=== PATIENT | male | born 1980 | race Caucasian/White ===

== ENCOUNTER 2020-03-03 13:22 | Inpatient (IN) | payer OTHER ==
[~2020-03-03] VITALS: Ht 175.3 cm; Wt 122.0 kg
[2020-03-03] MEDS ORDERED: CYCL100C5 PO (13:51)
[2020-03-03] MEDS ORDERED: PRAV20TA2 PO (13:51)
[2020-03-03] MEDS ORDERED: FOLI1TAB11 PO (13:51)
[2020-03-03] MEDS ORDERED: MYCO500T PO (13:51)
[2020-03-03] MEDS ORDERED: DILT180C78 PO (13:51)
[2020-03-03] MEDS ORDERED: ASPI81CH33 PO (13:51)
[2020-03-03 14:07] LABS: BASO % 0.3 % (0.0-1.0); EOS # 0.1 10^3/uL (0.0-0.5); EOS % 2.2 % (0.0-3.0); HEMATOCRIT 41.6 % (42.0-52.0); HEMOGLOBIN 13.3 g/dl (13.5-17.5); LYMPH # 1.4 10^3/uL (1.5-5.0); LYMPH % 23.5 % (24.0-44.0); MEAN CORPUSCULAR HEMOGLOBIN 28.1 pg (27.0-33.0); MEAN CORPUSCULAR VOLUME 87.9 fl (80.0-96.0); MONO # 0.6 10^3/uL (0.0-0.8); MONO % 9.6 % (0.0-5.0); NEUTROPHILS # 3.9 10^3/uL (1.5-8.5); NEUTROPHILS % 64.1 % (36.0-66.0); PLATELET COUNT, AUTOMATED 145 10^3/uL (150-450); RED BLOOD COUNT 4.73 10^6/uL (4.30-6.10)
[2020-03-03 14:19] LABS: INR 1.2; PROTHROMBIN TIME 14.9 SECONDS (11.8-14.0)
[2020-03-03 14:39] LABS: ALBUMIN 3.4 GM/DL (3.2-5.2); ALT/SGPT 26 U/L (12-78); BILIRUBIN,DIRECT 0.8 MG/DL (0.0-0.2); BILIRUBIN,TOTAL 1.9 MG/DL (0.2-1.0); BLOOD UREA NITROGEN 13 MG/DL (7-18); CALCIUM LEVEL 8.9 MG/DL (8.5-10.1); CARBON DIOXIDE LEVEL 28 MEQ/L (21-32); CHLORIDE LEVEL 106 MEQ/L (98-107); CK-MB VALUE MASS 1.3 NG/ML (<3.6); CPK CREATINE PHOSPHOKINASE 124 U/L (39-308); CREATININE FOR GFR 0.99 MG/DL (0.70-1.30); GLOMERULAR FILTRATION RATE > 60.0 (>60); GLUCOSE, FASTING 105 MG/DL (70-100); LIPASE 122 U/L (73-393); MB/CK RELATIVE INDEX 1.05 (< OR =4); NT-PRO BNP 280 PG/ML (<125); POTASSIUM SERUM 3.8 MEQ/L (3.5-5.1); SODIUM LEVEL 140 MEQ/L (136-145); TOTAL PROTEIN 7.8 GM/DL (6.4-8.2); TROPONIN I < 0.02 NG/ML (< 0.10)
--- NOTE | 2020-03-03 15:19 | REP ---
Left lower extremity Duplex Doppler venous ultrasound: Real time compression and duplex Doppler interrogation of the left lower extremity deep venous system is performed. The left common femoral, superficial femoral and popliteal veins are fully compressible with transducer pressure and demonstrate normal spontaneous and phasic flow, without evidence of deep venous thrombosis. Impression: No evidence of deep venous thrombosis of the left lower extremity femoral popliteal venous system. Electronically Signed by Mayur Lowry MD 03/03/2020 03:11 P
[2020-03-03] MEDS ORDERED: ISOVUE-370 76% 100ML VIAL As Ordered ONE (15:23)
--- NOTE | 2020-03-03 15:56 | REP ---
CHEST, SINGLE VIEW: Single view of the chest is performed. There are no prior studies. There is cardiomegaly. There appears to be vascular congestion. No focal infiltrate is seen. There is blunting of the costophrenic angles, which may represent small effusions. There is elevation of the right hemidiaphragm. There are multiple sternal wires present. Electronically Signed by Mayur Lowry MD 03/04/2020 01:36 P
[2020-03-03] MEDS ORDERED: FUROSEMIDE 40MG/4ML VIAL (J1940) IV ONE (16:15)
--- NOTE | 2020-03-03 17:13 | HPEPDOC ---
[facility] Medical History & Physical Date of Admission Mar 03, 2020 Date of Service: Mar 03, 2020 History and Physical CHIEF COMPLAINT: Exertional dyspnea HISTORY OF PRESENT ILLNESS: Pt is a 39 yo male with PMH of acute cardiomyopathy sp heart transplant in [facility] in [place] in 2000 presented to [facility] via ambulance d/t gradual onset of dyspnea that started when he was eating lunch. pt called ambulance and reported that his dyspnea resolved while he was in the ambulance; pt received oxygen in the ambulance. He denies having any prior similar episodes, chest pain, cough palpitation, fever, chills, N/V, diarrhea, constipation, or blood in stool. Pt denies change of diet; does not really count Na in diet and reported he normally drinks lots of water. He had left lower leg swelling for 2 weeks and was seen in [facility] 11 days ago, diagnosed with cellulitis with neg duplex LE US, and finished 10 days of doxycycline. Pt thinks his left leg swelling has remained about the same, but denies any pain in the lower extremities. Upon ER arrival, pt's BP was 198/111. He received a dose of IV lasix 40mg in ER 10 min prior to admission interview PAST MEDICAL HISTORY: 1. 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 Acute cardiomyopathy, viral PAST SURGICAL HISTORY: 1. Heart transplant in [place] in 2010 2. 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 Denies recent travel hx. Denies recent sick contact or COVID 19 contact ALLERGIES: Please see below. REVIEW OF SYSTEMS: CONSTITUTIONAL: Denies fever or chills HEENT: Denies any cough CARDIOVASCULAR: Denies chest pain, palpitation RESPIRATORY: Dyspnea resolved GASTROINTESTINAL: Denies diarrhea, constipation, or blood in stool GENITOURINARY: Denies dysuria, urgency, frequency, or retention SKIN: Pos for chronic RLQ varicose veins. Pos for left LE swellingx2 wks NEUROLOGICAL: Denies any neurological deficits HOME MEDICATIONS: Please see below. PHYSICAL EXAMINATION: VITAL SIGNS: Temperature 97, pulse 60, respiratory rate 18, blood pressure 163/102, pulse oximetry 95 % on room air. GENERAL APPEARANCE: Appears anxious, not in acute distress HEENT: Head normocephalic, atraumatic. Noninjected, anicteric sclera b/l. Neck is suppley. Counce and dry mucous membranes. RESPIRATORY: Lungs are clear to auscultation bilaterally with wheezing, rales, or rhonchi noted b/l CARDIOVASCULAR: RRR, no murmur. Normal S1, S2 with no murmurs or rubs. ABDOMEN: Soft, no distention or guarding. Bowel sounds aus in all 4 quadrants EXTREMITIES: 3+ pitting edema left lower extremity, trace pitting edema right lower extremity without obvious erythema. No signs of cyanosis. Varicose veins in left LE NEUROLOGICAL: Awake, alert and oriented 3. No focal neurologic deficits appreciated or memory deficits noted. PSYCHIATRIC: Mood and affect appear appropriate LABORATORY DATA: See below. IMAGING: Left LE duplex US showed no evidence of DVT of the left lower extremity femoral popliteal venous system CXR vascular congestion CTA showed cardiomegaly, radiolody report pending MICROBIOLOGY: Please see below. ASSESSMENT: Pt is a 39 yo male with PMH of acute cardiomyopathy thought to be viral etiology s/p heart transplant in 2000 presented to [facility] d/t dyspnea while eating lunch which had resolved while in ambulance. He also reported swelling in left LE without pain for 2 wks. PLAN: 1. Heart failure. FRD=029 with CXR showed vascular congestion. Pt reported he was told that he had a diastolic dysfunction with EF 55%-60%. He reported having most recent echo done in [place] a year ago. Repeat echo. Ptis currently asymptomatic without any dyspnea, chest pain, or orthopnea besides swelling in LLE thus will hold off on starting scheduled diuretics at this time. Pt already received a dose of IV lasix 40mg in ER. I&O, daily weight, and vital signs. Low salt diet. Trend trop. Cont home med diltiazem. 2. Elevated blood pressure. No prior medical hx of HTN. BP was 198/111 upon arrival and currently 163/103. Given pt just received one dose of IV lasix prior to hospital admission, pt's BP may be decreasing with diuresis. Another one time dose of 5mg amlodipine was given 3. Hx of heart transplant for acute cardiomyopathy, cont home med cyclosporine and mycophenolate as well as folic acid. EKG showed new T wave inversions in lead V2, V3, and V4. Attempted to reach pt's driver license technician Dr. HENRY at [place] [phone] but office close; will attempt to call again. DVT prophylaxis: lovenox GI prophylaxis: not required Vital Signs Vital Signs Date Time Temp Pulse Resp B/P (MAP) Pulse Ox O2 Delivery O2 Flow Rate FiO2 03/03/20 17:00 60 17 162/96 (118) 97 Room Air 03/03/20 13:40 97.0 Laboratory Data Labs 24H Laboratory Tests 2 03/03/20 13:48: Immature Granulocyte % (Auto) 0.3, Neutrophils (%) (Auto) 64.1, Lymphocytes (%) (Auto) 23.5L, Monocytes (%) (Auto) 9.6H, Eosinophils (%) (Auto) 2.2, Basophils (%) (Auto) 0.3, Neutrophils # (Auto) 3.9, Lymphocytes # (Auto) 1.4L, Monocytes # (Auto) 0.6, Eosinophils # (Auto) 0.1, Basophils # (Auto) 0.0, Nucleated Red Blood Cells % (auto) 0.0, Prothrombin Time 14.9H, Prothromb Time International Ratio 1.20, Anion Gap 6L, Glomerular Filtration Rate > 60.0, Calcium Level 8.9, Total Bilirubin 1.9H, Direct Bilirubin 0.8H, Aspartate Amino Transf (AST/SGOT) 31, Alanine Aminotransferase (ALT/SGPT) 26, Alkaline Phosphatase 104, Total Creatine Kinase 124, Creatine Kinase MB 1.3, Creatine Kinase MB Relative Index 1.05, Troponin I < 0.02, RT-Mpx-V-Type Natriuretic Peptide 280H, Total Protein 7.8, Albumin 3.4, Albumin/Globulin Ratio 0.8, Lipase 122, Thyroid Stimulating Hormone (TSH) 2.190 CBC/BMP Laboratory Tests 03/03/20 13:48 Home Medications Scheduled Aspirin (Aspirin) 81 Mg Tab.chew, 81 MG PO DAILY Cyclosporine (Cyclosporine) 100 Mg Capsule, 100 MG PO BID Diltiazem Hcl (Diltiazem 24Hr ER) 180 Mg Cap.er.24h, 180 MG PO DAILY Folic Acid (Folic Acid) 1 Mg Tablet, 3 MG PO DAILY Furosemide (Lasix) 20 Mg Tablet, 20 MG PO DAILY for leg edema Mycophenolate Mofetil (Mycophenolate Mofetil) 500 Mg Tablet, 1,500 MG PO BID Pravastatin Sodium (Pravastatin Sodium) 20 Mg Tablet, 20 MG PO QHS Allergies Coded Allergies: No Known Allergies (Unverified , 03/03/20) A-FIB/CHADSVASC A-FIB History Current/History of A-Fib/PAF?: No GME ATTESTATION GME ATTESTATION My faculty preceptor for this patient encounter was physically present during the encounter and was fully available. All aspects of the patient interview, examination, medical decision making process, and medical care plan development were reviewed and approved by the faculty preceptor. The faculty preceptor is aware and concurs with the plan as stated in the body of this note and will attest to such by his/her cosignature. GREYSON SEN DO Mar 03, 2020 17:13
[2020-03-03] MEDS ORDERED: amLODIPine 5 MG TAB PO ONE (17:30)
[2020-03-03 17:32] VITALS: BP 163/102
[2020-03-03 18:40] VITALS: BP 146/95
--- NOTE | 2020-03-03 20:48 | ECGEPIP ---
[facility] - ED Test Date: 2020-03-03 Pat Name: MANINDER JAIMES Department: Room: - Gender: Male Fashion Intern: christian : 1980 Requested By: Lilliam Martins Order Number: [id number] Reading MD: Low Donis Measurements Intervals [place] Rate: 81 P: 18 MO: 133 QRS: 59 QRSD: 122 T: 29 QT: 404 QTc: 471 Interpretive Statements SINUS RHYTHM RIGHT BUNDLE BRANCH BLOCK Anterior lateral ST-T wave abnormalities- consider ischemia Comparison tracing not on file Electronically Signed on 03-03-2020 20:48:25 EDT by Low Donis
[2020-03-03] MEDS ORDERED: PRAVASTATIN 20 MG TAB PO SCH (21:00)
[2020-03-03 22:00] VITALS: BP 145/91
[2020-03-03] MEDS: SandIMMUNE 100 MG CAP (J7502) PO SCH (22:25)
[2020-03-03] MEDS: MYCOPHENOLATE MOFETIL 250 MG CAP (J7517) PO SCH (22:25)
--- NOTE | 2020-03-03 23:09 | REP ---
CT ANGIOGRAM CHEST: TECHNIQUE: Axial contrast-enhanced images from the thoracic inlet to the upper abdomen using 100 mL Isovue-370 intravenous contrast material with multiplanar reformations. There is no CT evidence of pulmonary embolism. There is no thoracic aortic aneurysm or dissection. There is cardiomegaly. There is no mediastinal, hilar, or chest wall lymphadenopathy. There is no pleural or pericardial effusion. There is elevation of the right hemidiaphragm. There are bibasilar fibroatelectatic changes, right greater than left. Small cysts are seen in the kidneys. IMPRESSION: No CT evidence of pulmonary embolism. Cardiomegaly. Bibasilar fibroatelectatic change, right greater than left. No pleural effusion. Electronically Signed by Mayur Lowry MD 03/04/2020 01:40 P
[2020-03-04 06:00] VITALS: BP 141/81
[2020-03-04] MEDS ORDERED: diltiaZEM **CD** 180 MG CAP PO SCH (09:00)
[2020-03-04] MEDS ORDERED: FOLIC ACID 1 MG TAB PO SCH (09:00)
[2020-03-04] MEDS ORDERED: ASPIRIN 81 MG CHEW TABLET PO SCH (09:00)
[2020-03-04] MEDS ORDERED: ENOXAPARIN 40MG/0.4ML SYRINGE (J1650 PER 10MG) SC SCH (09:00)
[2020-03-04] MEDS: MYCOPHENOLATE MOFETIL 250 MG CAP (J7517) PO SCH (10:08)
[2020-03-04] MEDS: SandIMMUNE 100 MG CAP (J7502) PO SCH (10:08)
[2020-03-04 10:18] VITALS: BP 162/97
[2020-03-04] MEDS ORDERED: LASI20TA3 PO (11:53)
--- NOTE | 2020-03-04 14:07 | ECHO ---
DATE OF PROCEDURE: 03/04/2020 REFERRING PHYSICIAN: Dr. Kelly Dumont INDICATION: Abnormal EKG. HEIGHT: 175 cm WEIGHT: 122 kg DIMENSIONS: IVS: 1.4 LV: 5.4 LVPW: 1.4 LA: 4.7 RV: 4.4 Aorta: 3.2 IVC: 3.6 Mitral E wave velocity: 102 A wave: 37 E prime septal: 6.3 E prime lateral: 10.2 FINDINGS: The study is of fair technical quality corresponding to patient's body habitus. The patient is in sinus rhythm. Normal LV size with mild LVH and preserved LV systolic function. I do not appreciate any distinct segmental wall motion abnormalities. Right ventricle appears at least mildly dilated. There is at least moderate biatrial enlargement. Aortic, mitral, tricuspid and pulmonic valves were all well seen and appear structurally intact. No pericardial effusion is noted. Inferior vena cava is markedly dilated and there is no appreciable collapse with inspiration indicative of very high central venous pressure. Aortic root and aortic arch appear normal. Abdominal aorta was not well seen. Doppler interrogation reveals competent aortic valve. There is trace mitral insufficiency and approximately [id number] tricuspid insufficiency. Calculated pulmonary artery pressure is at minimum in low 50s, which corresponds to moderate pulmonary hypertension. Pulmonic valve is functionally competent. Mitral inflow pattern and tissue Doppler imaging of mitral annulus revealed grade 2 diastolic dysfunction. CONCLUSIONS: 1. Study is of fair technical quality, the patient is in sinus rhythm. 2. Normal LV size with mild LVH, normal LV systolic function and likely grade 2 diastolic dysfunction. 3. Very high central venous pressure and at least moderate and potentially higher pulmonary hypertension. 4. No hemodynamically significant valvular disease. COMMENT: Subacute bacterial endocarditis (SBE) prophylaxis is not recommended.
--- NOTE | 2020-03-04 18:23 | DS.PDOC ---
Discharge Summary General Date of Admission Mar 03, 2020 at 16:18 Date of Discharge March 04, 2020 Discharge Summary PROCEDURES PERFORMED DURING STAY: [None]. ADMITTING DIAGNOSES: 1. Heart failure 2. Elevated blood pressure 3. Hx of heart transplant for acute cardiomyopathy, cont home med cyclosporine and mycophenolate as well as folic acid DISCHARGE DIAGNOSES: 1. Diastolic Heart failure 2. Hypertension 3. Hx of heart transplant for acute cardiomyopathy, cont home med cyclosporine and mycophenolate as well as folic acid 4. Elevated central venous pressure COMPLICATIONS/CHIEF COMPLAINT: Chf Exacerbation. HISTORY OF PRESENT ILLNESS: Pt is a 39 yo male with PMH of acute cardiomyopathy sp heart transplant in [facility] in [place] in 2000 presented to [facility] via ambulance d/t gradual onset of dyspnea that started when he was eating lunch. pt called ambulance and reported that his dyspnea resolved while he was in the ambulance; pt received oxygen in the ambulance. He denies having any prior similar episodes, chest pain, cough palpitation, fever, chills, N/V, diarrhea, constipation, or blood in stool. Pt denies change of diet; does not really count Na in diet and reported he normally drinks lots of water. He had left lower leg swelling for 2 weeks and was seen in [facility] 11 days ago, diagnosed with cellu litis with neg duplex LE US, and finished 10 days of doxycycline. Pt thinks his left leg swelling has remained about the same, but denies any pain in the lower extremities. HOSPITAL COURSE: Upon ER arrival, pt's BP was 198/111. He received a dose of IV lasix 40mg. His blood pressure was still elevated around 160/100 at that time thus an extra dose of amlodipine was given. Pt had been diuresing well with the one time dose of IV lasix 40mg with -5005ml on 03/03/2020 and -2975ml on 03/04/2020. On the day of discharge, he cont to report no dyspnea, wheezing, cough, chest pain, palpitation, fever, or chills. He thinks his left leg swelling has decreased. Pt received echo in the morning, after discussing prelim reading with cardiology, pt determined to be stable to be discharged home. DISCHARGE MEDICATIONS: Please see below. ALLERGIES: Please see below. PHYSICAL EXAMINATION ON DISCHARGE: VITAL SIGNS: Please see below. GENERAL APPEARANCE: Alert and awake, not in acute distress HEENT: Head normocephalic, atraumatic. Noninjected, anicteric sclera b/l. Neck is suppley. [place] and dry mucous membranes. RESPIRATORY: Lungs are clear to auscultation bilaterally with wheezing, rales, or rhonchi noted b/l CARDIOVASCULAR: RRR, no murmur. Normal S1, S2 with no murmurs or rubs. ABDOMEN: Soft, no distention or guarding. Bowel sounds aus in all 4 quadrants EXTREMITIES: 1 to 2+ pitting edema left lower extremity, no edema right lower extremity without obvious erythema. No signs of cyanosis. Varicose veins in left LE NEUROLOGICAL: Awake, alert and oriented 3. No focal neurologic deficits appreciated or memory deficits noted. PSYCHIATRIC: Mood and affect appear appropriate LABORATORY DATA: Please see below. IMAGING: CTA showed bibasilar fibroatelectatic change, right greater than left; no PE Left LE duplex US showed no evidence of DVT of the left lower extremity femoral popliteal venous system CXR vascular congestion Echo shows elevated CVP, grade 2 diastolic dysfunction, normal EF PROGNOSIS: Fair ACTIVITY: [As tolerated]. DIET: 2g Na diet DISPOSITION: 01 Home, Self-Care. DISCHARGE PLAN AND INSTRUCTIONS: 1. Follow up with PCP in 1 wk 2. Follow up with family service caseworker Dr. HENRY at [place] in 2-3 wks. Pt's hospitalization was discussed with Dr. HENRY's office nurse on 03/04/2020 and she verbalized they will request hospital records 3. Take lasix as directed ITEMS TO FOLLOWUP ON ON OUTPATIENT: 1. Diastolic heart failure 2. Elevated central venous pressure DISCHARGE CONDITION: [Improved]. TIME SPENT ON DISCHARGE: Greater than 38 minutes. Vital Signs/I&Os Vital Signs Date Time Temp Pulse Resp B/P (MAP) Pulse Ox O2 Delivery O2 Flow Rate FiO2 03/04/20 10:18 75 162/97 03/04/20 06:00 98.1 16 95 Room Air I&O- Last 24 Hours up to 6 AM 03/04/20 05:59 Intake Total 420 ml Output Total 5700 ml Balance -5280 ml Laboratory Data Labs 24H Laboratory Tests 2 03/03/20 20:53: Troponin I < 0.02 Discharge Medications Scheduled Aspirin (Aspirin) 81 Mg Tab.chew, 81 MG PO DAILY, (Reported) Cyclosporine (Cyclosporine) 100 Mg Capsule, 100 MG PO BID, (Reported) Diltiazem Hcl (Diltiazem 24Hr ER) 180 Mg Cap.er.24h, 180 MG PO DAILY, (Reported) Folic Acid (Folic Acid) 1 Mg Tablet, 3 MG PO DAILY, (Reported) Furosemide (Lasix) 20 Mg Tablet, 20 MG PO DAILY for leg edema Mycophenolate Mofetil (Mycophenolate Mofetil) 500 Mg Tablet, 1,500 MG PO BID, (Reported) Pravastatin Sodium (Pravastatin Sodium) 20 Mg Tablet, 20 MG PO QHS, (Reported) Allergies Coded Allergies: No Known Allergies (Unverified , 03/03/20) GME ATTESTATION GME ATTESTATION My faculty preceptor for this patient encounter was physically present during the encounter and was fully available. All aspects of the patient interview, examination, medical decision making process, and medical care plan development were reviewed and approved by the faculty preceptor. The faculty preceptor is aware and concurs with the plan as stated in the body of this note and will attest to such by his/her cosignature. GREYSON SEN DO Mar 04, 2020 18:23
== END 2020-03-04 13:00 | disposition home or self-care (01) | DRG 292 ==
LOC: M ED 13:22 → EDBD 13:22 → M ED INP 16:18 → ENRESERV 16:34 → M MSPAV 17:32
PROVIDERS: ADMIT Internal Medicine; ATTEND Internal Medicine
DX: I11.0 Hypertensive heart disease with heart failure (principal); Z94.1 Heart transplant status; I50.30 Unspecified diastolic (congestive) heart failure; Z79.82 Long term (current) use of aspirin; Z79.899 Other long term (current) drug therapy